=== PATIENT | female | born 1995 | race Two or more races ===

== ENCOUNTER 2023-08-20 20:35 | Emergency (ER) | payer SELFPAY ==
[~2023-08-20] VITALS: Ht 152.4 cm; Wt 63.6 kg
[2023-08-20] MEDS ORDERED: HALOPERIDOL LACTATE 5 MG/ML INJ VIAL IM ONE (20:45)
[2023-08-20] MEDS ORDERED: LORazepam 2MG/ML-1ML VIAL IV ONE (20:45)
[2023-08-20] MEDS ORDERED: HALOPERIDOL LACTATE 5 MG/ML INJ VIAL ONE (20:47)
[2023-08-20] MEDS ORDERED: LORazepam 2MG/ML-1ML VIAL ONE (20:47)
[2023-08-20 21:41] LABS: Hematocrit 41.4 % (36.0-46.0); Hemoglobin 13.7 g/dL (12.2-16.2); Mean Corpuscular Hemoglobin 31.7 pg (28.0-32.0); Mean Corpuscular Hgb Conc. 33.2 g/dL (32.0-36.0); Mean Corpuscular Volume 95.6 fL (80.0-100.0); Red Blood Cells 4.33 10^6/uL (4.0-5.20); Red Cell Distribution Width 13.5 % (11.8-14.3); White Blood Cell 13.1 10^3/uL (4.4-10.8)
[2023-08-20 21:45] LABS: Alanine Aminotransferase 35 U/L (7-40); Albumin 4.5 g/dL (3.2-4.8); Alkaline Phosphatase 92 U/L (46-116); Anion Gap 9 (5-15); Aspartate Aminotransferase 32 U/L (13-40); BUN/Creatinine Ratio 11.1 (10.0-20.0); Bilirubin, Total 0.2 mg/dL (0.2-1.0); Blood Urea Nitrogen 7 mg/dL (9-23); Calcium 8.5 mg/dL (8.7-10.4); Carbon Dioxide 23 mmol/L (20-30); Chloride 113 mmol/L (98-107); Glucose 98 mg/dL (74-106); Sodium 145 mmol/L (136-145)
[2023-08-20 21:46] LABS: Total Protein 7.6 g/dL (5.7-8.2)
[2023-08-20 21:53] LABS: Blood Alcohol 350.9 mg/dL (<10)
[2023-08-20 22:04] LABS: Band Neutrophils % (manual) 0; Basophils % (manual) 0 (0.0-2.0); Blast Cells 0; Metamyelocytes % 0; Myelocytes % 0; Promyelocytes % 0; Reactive Lymphocytes 0
[2023-08-20 22:40] LABS: Lactic Acid w/Reflex 2.6 mmol/L (0.4-2.0)
[2023-08-20 22:52] LABS: Eosinophils % (manual) 4 (0-7); Lymphocytes % (manual) 61 (10.0-50.0); Monocytes % (manual) 3 (0-12)
[2023-08-20 22:53] LABS: Platelet Estimate Adequate
[2023-08-20 23:05] VITALS: PULSE 66; RESP 15; O2SAT 95
[2023-08-20] MEDS ORDERED: SODIUM CHLORIDE 0.9% 500 ML IV ONE (23:15)
[2023-08-20] MEDS ORDERED: ONDANSETRON HCL 4 MG/2 ML VIAL IV ONE (23:15)
[2023-08-20] MEDS ORDERED: THIAMINE 100mg/ml INJ (200mg/2ml VIAL) IV ONE (23:15)
[2023-08-21] MEDS ORDERED: SODIUM CHLORIDE 0.9% 1,000 ML IV ONE ×2 (00:15→05:15)
[2023-08-21] MEDS: POTASSIUM CHL 20MEQ/100ML 100 ML IV SCH ×2 (00:18→01:59)
[2023-08-21 01:03] LABS: Urine Bacteria FEW /hpf (None Seen); Urine Blood Negative /uL (Negative); Urine Clarity Clear (Clear); Urine Color Colorless (Yellow); Urine Mucus FEW (None Seen); Urine Protein, UAD Negative (Negative); Urine Specific Gravity 1.013 (1.001-1.035); Urine Urobilinogen Normal (Negative); Urine WBC 1 /hpf (0 - 5); Urine pH 5.5 (5.0-8.0)
[2023-08-21 01:26] LABS: Amphetamine Screen, Urine Neg (NEGATIVE); Barbiturate Scree,Urine Neg (NEGATIVE); Benzodiazephine Screen, Urine Neg (NEGATIVE); Cannabinoid Screen, Urine Neg (NEGATIVE); Cocaine Screen, Urine Neg (NEGATIVE); Opiate Scree,Urine Neg (NEGATIVE); Phencyclidine Screen, Urine Neg (NEGATIVE)
[2023-08-21 07:50] VITALS: PULSE 113; RESP 12; O2SAT 98
[2023-08-21 09:43] LABS: Chloride 113 mmol/L (98-107); Potassium 3.7 mmol/L (3.5-5.1); Sodium 146 mmol/L (136-145)
[2023-08-21 09:44] LABS: Anion Gap 10 (5-15); Calcium 8.8 mg/dL (8.5-10.1); Carbon Dioxide 23 mmol/L (20-30)
[2023-08-21 09:49] LABS: BUN/Creatinine Ratio 8.5 (10.0-20.0); Blood Urea Nitrogen 5 mg/dL (9-23); Glucose 78 mg/dL (74-106)
[2023-08-21 14:55] VITALS: BP 108/70; PULSE 99; RESP 20; TEMP 98.2; O2SAT 98
[2023-08-21] MEDS ORDERED: FOLIC ACID 1 MG, MAGNESIUM SULF SDV 50% 8 MEQ, MULTIPLE VITAMIN 10 ML, THIAMINE INJ 100... INJ SCH ×5 (18:00)
== END 2023-08-21 15:03 | disposition home or self-care (01) ==
LOC: ER 20:35 → EDBD 20:35 → ER 08-21 15:03
DX: F10.129 Alcohol abuse with intoxication, unspecified (principal); D72.829 Elevated white blood cell count, unspecified; E87.6 Hypokalemia; R74.02 Elevation of levels of lactic acid dehydrogenase [LDH]; Z79.899 Other long term (current) drug therapy; Y90.0 Blood alcohol level of less than 20 mg/100 ml
CPT/HCPCS: 36415; 71045; 80048; 80053; 80307; 80320; 81001; 81025; 83605; 83735; 85007; 85027; 96361; 96365; 96366; 96372; 96375; 99285; J1630; J2060; J2405; J3411; J3480; J7030; J7040